=== PATIENT | male | born 1995 | race Native Hawaiian/Other Pacific Islander ===

== ENCOUNTER 2017-01-22 00:02 | Emergency (ER) | payer MEDICAID, MEDICARE ==
[2017-01-22 00:54] VITALS: RESP 20; TEMP 98.8
[2017-01-22] MEDS ORDERED: DiphenhydrAMINE 50 mg/ml Inj IM STA (01:25)
--- NOTE | 2017-01-22 01:33 | C.PDOC ---
History Of Present Illness 21 year old male presents to the ED with a complaint of itchy red skin patches that started at approximately 21:00. Patient states he drank coke with [place] for the first time, otherwise denies consuming any new substance or using any new detergents. Time Seen by Provider: 01/22/17 01:16 Chief Complaint (Nursing): Abnormal Skin Integrity History Per: Patient History/Exam Limitations: no limitations Onset/Duration Of Symptoms: Hrs Current Symptoms Are (Timing): Still Present Quality Of Symptoms: Itching, Other (Redness) Recent travel outside of the [place]: No Past Medical History Reviewed: Historical Data, Nursing Documentation, Vital Signs Vital Signs: Last Vital Signs Temp 98.8 F 01/22/17 00:51 Pulse 88 01/22/17 02:28 Resp 20 01/22/17 02:28 BP 128/76 01/22/17 02:28 Pulse Ox 100 01/22/17 03:14 - Medical History PMH: No Chronic Diseases Surgical History: No Surg Hx Family History: States: Unknown Family Hx - Social History Hx Alcohol Use: Yes Hx Substance Use: No - Immunization History Hx Tetanus Toxoid Vaccination: No Hx Influenza Vaccination: No Hx Pneumococcal Vaccination: No Review Of Systems ENT: Negative for: Mouth Swelling, Throat Swelling Respiratory: Negative for: Wheezing Skin: Positive for: Rash Physical Exam - Physical Exam Appears: Non-toxic Skin: Rash (diffuse erythemous patches to arms, torso, and neck) Head: Atraumatic, Normacephalic Tongue: Normal Appearing, No Swelling Lips: Normal Appearing, No Swelling Throat: Normal, No Other (uvula swelling) Neck: Normal, Supple Chest: Symmetrical Cardiovascular: Rhythm Regular Respiratory: Normal Breath Sounds, No Rales, No Rhonchi, No Wheezing Neurological/Psych: Oriented x3, Normal Speech, Normal Cognition ED Course And Treatment O2 Sat by Pulse Oximetry: 100 (Room air) Medical Decision Making Medical Decision Making: Erythemic patches found in arms, torso and neck. pt much less itchy with decreased erythema to body after benadryl. will d/c home with benadryl and pmd f/u Disposition Counseled Patient/Family Regarding: Need For Followup - Disposition Disposition: HOME/ ROUTINE Disposition Time: 02:21 Condition: GOOD Additional Instructions: Take diphenhydramine 25 mg by mouth every 6 hours for next several days; this medicine makes you sleepy, so no operating machinery or driving when taking it. Return to ER for any worse itching, any difficulty swallowing or breathing. Follow up with your doctor on Tuesday. Prescriptions: DiphenhydrAMINE [Benadryl] 25 mg PO Q6 #36 cap Instructions: Urticaria (ED) Forms: [facility] (Telugu), General Discharge Instructions - Clinical Impression Clinical Impression: Allergic urticaria - Scribe Statement The provider has reviewed the documentation as recorded by the Scribmelissa Kebede All medical record entries made by the Phyllisibe were at my direction and personally dictated by me. I have reviewed the chart and agree that the record accurately reflects my personal performance of the history, physical exam, medical decision making, and the department course for this patient. I have also personally directed, reviewed, and agree with the discharge instructions and disposition.
[2017-01-22 02:30] VITALS: BP 128/76; PULSE 88
[2017-01-22 03:00] VITALS: O2SAT 100
== END 2017-01-22 02:28 | disposition home or self-care (01) ==
LOC: C.ER 00:02
DX: L50.0 Allergic urticaria (principal)
CPT/HCPCS: 96372; 99285; J1200